=== PATIENT | male | born 1955 | race Caucasian/White ===

== ENCOUNTER 2019-05-04 15:18 | Emergency (ER) | payer MEDICARE, BC ==
[~2019-05-04] VITALS: Ht 182.9 cm; Wt 111.1 kg
[2019-05-04] MEDS ORDERED: ASA81BEC PO (15:28)
[2019-05-04] MEDS ORDERED: METFORMIN HCL500 M3 PO (15:28)
[2019-05-04] MEDS ORDERED: ACTOS 30 MG TAB30 M1 PO (15:29)
[2019-05-04] MEDS ORDERED: COZAAR 25 MG TA25 M1 PO (15:29)
[2019-05-04] MEDS ORDERED: WELLBUTRIN XL300 MG PO (15:30)
[2019-05-04] MEDS ORDERED: SERTRALINE HCL100 MG PO (15:30)
[2019-05-04] MEDS ORDERED: XIFAXAN550 M1 PO (15:30)
[2019-05-04] MEDS ORDERED: KEFLEX500 M1 PO (17:09)
[2019-05-04 17:19] VITALS: BP 159/62
== END 2019-05-04 17:19 | disposition home or self-care (01) ==
LOC: M.ERS 15:18
DX: S01.111A Laceration without foreign body of right eyelid and periocular area, initial encounter (principal); Z88.5 Allergy status to narcotic agent; W18.39XA Other fall on same level, initial encounter; Y93.89 Activity, other specified; Y92.89 Other specified places as the place of occurrence of the external cause; Y99.8 Other external cause status

== ENCOUNTER 2020-05-02 08:20 | Emergency (ER) | payer MEDICARE, BC ==
[~2020-05-02] VITALS: Ht 188 cm; Wt 104.3 kg
[~2020-05-02 08:20] MED LIST: ACTOS 30 MG TAB30 M1 PO; ASA81BEC PO; COZAAR 25 MG TA25 M1 PO; KEFLEX500 M1 PO; METFORMIN HCL500 M3 PO; SERTRALINE HCL100 MG PO; WELLBUTRIN XL300 MG PO; XIFAXAN550 M1 PO
[2020-05-02] MEDS ORDERED: NORCO 5-325 TA1 EAC2 PO (09:48)
[2020-05-02 10:03] VITALS: BP 148/72
== END 2020-05-02 10:04 | disposition home or self-care (01) ==
LOC: M.ERS 08:20
DX: S60.012A Contusion of left thumb without damage to nail, initial encounter (principal); Z20.828 Contact with and (suspected) exposure to other viral communicable diseases; E11.9 Type 2 diabetes mellitus without complications; Z88.5 Allergy status to narcotic agent; X58.XXXA Exposure to other specified factors, initial encounter; Y93.89 Activity, other specified; Y92.89 Other specified places as the place of occurrence of the external cause; Y99.8 Other external cause status

== ENCOUNTER 2020-05-15 18:55 | Emergency (ER) | payer MEDICARE, BC ==
[~2020-05-15] VITALS: Ht 188 cm; Wt 104.3 kg
[~2020-05-15 18:55] MED LIST changes: +NORCO 5-325 TA1 EAC2 PO
[2020-05-15 19:42] LABS: ABSOLUTE EOSINOPHILS 0.1 thou/uL (0.0-0.7); ABSOLUTE LYMPHOCYTES 1.4 thou/uL (0.8-5.3); ABSOLUTE MONOCYTES 0.5 thou/uL (0.0-1.2); ABSOLUTE NEUTROPHILS 1.5 thou/uL (1.6-8.1); BASOPHILS 0.4 %; EOSINOPHILS 2.8 %; HEMATOCRIT 40.8 % (42.0-52.0); HEMOGLOBIN 13.5 gm/dL (14.0-18.0); LYMPHOCYTES 40.3 %; MCH 29.8 pg (26.0-34.0); MCV 90.4 fL (80.0-100.0); MONOCYTES 13.1 %; MPV 8.3 fl. (7.2-11.1); NUCLEATED RBCS 0 /100WBC; PLATELET COUNT* 164 thou/uL (150-400); POLYS 43.4 %; RBC 4.52 mil/uL (4.50-6.00); RDW-CV 15.3 % (10.5-14.5); WBC 3.4 thou/uL (4.0-11.0)
[2020-05-15 20:00] LABS: CALCIUM 9.1 mg/dL (8.5-10.1); CREATININE 0.7 mg/dL (0.6-1.3)
[2020-05-15 20:02] LABS: INFLUENZA A ANTIGEN Negative (Negative); INFLUENZA B ANTIGEN Negative (Negative)
[2020-05-15 20:12] LABS: ALBUMIN 3.4 g/dL (3.4-5.0); TOTAL BILIRUBIN 0.3 mg/dL (<0.1-1.0); TOTAL PROTEIN 6.8 g/dL (6.4-8.2)
[2020-05-15] MEDS ORDERED: ZPAK PO (20:22)
[2020-05-15] MEDS ORDERED: ZOFRAN ODT4 MG DISSOLVE (20:22)
[2020-05-15 20:34] VITALS: BP 119/64
--- NOTE | 2020-05-16 13:14 | EKG ---
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
== END 2020-05-15 20:36 | disposition home or self-care (01) ==
LOC: M.ERS 18:55
PROVIDERS: Emergency Medicine Emergency Medical Services
DX: U07.1 COVID-19 (principal); Z88.5 Allergy status to narcotic agent; E11.9 Type 2 diabetes mellitus without complications

== ENCOUNTER 2020-07-18 20:37 | Emergency (ER) | payer MEDICARE, BC ==
[~2020-07-18] VITALS: Ht 190.5 cm; Wt 106.6 kg
[~2020-07-18 20:37] MED LIST changes: +ZOFRAN ODT4 MG DISSOLVE; +ZPAK PO
[2020-07-18 21:23] LABS: ABSOLUTE BASOPHILS 0.1 thou/uL (0.0-0.2); ABSOLUTE EOSINOPHILS 0.2 thou/uL (0.0-0.7); ABSOLUTE LYMPHOCYTES 2.5 thou/uL (0.8-5.3); ABSOLUTE MONOCYTES 0.7 thou/uL (0.0-1.2); ABSOLUTE NEUTROPHILS 3.3 thou/uL (1.6-8.1); BASOPHILS 1.2 %; EOSINOPHILS 2.8 %; HEMATOCRIT 41.4 % (42.0-52.0); HEMOGLOBIN 13.9 gm/dL (14.0-18.0); LYMPHOCYTES 37.3 %; MCH 30.1 pg (26.0-34.0); MCHC 33.6 g/dL (28.0-37.0); MCV 89.7 fL (80.0-100.0); MONOCYTES 10.8 %; NUCLEATED RBCS 0 /100WBC; PLATELET COUNT* 221 thou/uL (150-400); POLYS 47.9 %; RBC 4.61 mil/uL (4.50-6.00); RDW-CV 15.4 % (10.5-14.5); WBC 6.8 thou/uL (4.0-11.0)
[2020-07-18 21:30] LABS: CALCIUM 9.3 mg/dL (8.5-10.1); POTASSIUM 4.2 mmol/L (3.5-5.1)
[2020-07-18 21:34] LABS: PROTIME 10.9 Seconds (9.20-11.50)
[2020-07-18 21:40] LABS: ALBUMIN 3.7 g/dL (3.4-5.0); MAGNESIUM 1.9 mg/dL (1.8-2.4); TOTAL BILIRUBIN 0.4 mg/dL (<0.1-1.0); TOTAL PROTEIN 6.9 g/dL (6.4-8.2)
[2020-07-18 21:58] LABS: URINE BILIRUBIN NEGATIVE (Negative); URINE BLOOD NEGATIVE (Negative); URINE CLARITY CLEAR; URINE COLOR YELLOW; URINE GLUCOSE-RANDOM NEGATIVE (Negative); URINE KETONES NEGATIVE (Negative); URINE LEUKOCYTES-REFLEX NEGATIVE (Negative); URINE NITRITE-REFLEX NEGATIVE (Negative); URINE PROTEIN NEGATIVE (Negative); URINE UROBILINOGEN 0.2 E.U./dl (0.2-1.0)
[2020-07-18 22:52] VITALS: BP 156/72
--- NOTE | 2020-07-19 11:12 | EKG ---
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 Burks : 1955 Requested By: Loren Buenrostro Order Number: [id number] MD: Arpan Powers Measurements Intervals [place] Rate: 83 P: 63 CT: 206 QRS: -29 QRSD: 122 T: 81 QT: 393 QTc: 462 Interpretive Statements Sinus rhythm Multiform ventricular premature complexes Left ventricular hypertrophy Baseline wander in lead(s) V1,V6 Compared to ECG 05/15/2020 19:07:07 Ventricular premature complex(es) now present Electronically Signed On 07-19-2020 11:12:28 PETROLEUM ENGINEER by Arpan Powers [email or web address] <ELECTRONICALLY SIGNED> By: Arpan Powers MD, [facility] 07/19/20 1112 47 47 Arpan Powers MD, [facility] /EPI
== END 2020-07-18 22:53 | disposition home or self-care (01) ==
LOC: M.ERS 20:37
PROVIDERS: Emergency Medicine
DX: R00.2 Palpitations (principal); E11.9 Type 2 diabetes mellitus without complications; Z88.5 Allergy status to narcotic agent